=== PATIENT | female | born 1940 | race Caucasian/White ===

== ENCOUNTER → 2017-03-21 | Outpatient (CLI) | payer OTHER | END | disposition home or self-care (01) | LOC: RAH 14:32 | PROVIDERS: ATTEND Family Medicine | DX: R92.8 Other abnormal and inconclusive findings on diagnostic imaging of breast (principal); Z98.82 Breast implant status | CPT/HCPCS: 77066 ==

== ENCOUNTER → 2017-04-12 | Outpatient (CLI) | payer OTHER | END | disposition home or self-care (01) | LOC: RAH 15:40 | PROVIDERS: ATTEND Physical Medicine & Rehabilitation | DX: M47.896 Other spondylosis, lumbar region (principal) | CPT/HCPCS: 72110 ==

== ENCOUNTER → 2017-07-17 | Outpatient (CLI) | payer OTHER | END | disposition home or self-care (01) | LOC: RAH 14:45 | PROVIDERS: ATTEND Physical Medicine & Rehabilitation | DX: M51.16 Intervertebral disc disorders with radiculopathy, lumbar region (principal); M48.061 Spinal stenosis, lumbar region without neurogenic claudication | CPT/HCPCS: 72148 ==

== ENCOUNTER 2019-03-23 19:26 | Observation (INO) | payer OTHER ==
[~2019-03-23] VITALS: Ht 162.6 cm; Wt 71.8 kg
[~2019-03-23 19:26] MED LIST: CALC-933 PO; CHOL200012 PO; CLON0.5T4 PO; MAGN100T PO; METH10005 PO; THYR90TA15 PO; TURM500C9 PO; VIT500TA8 PO; ZOLP10TA6 PO; [UNRECOGNIZED DRUG - CODE] PO
[2019-03-23 20:35] LABS: BASOPHILS % (AUTO) 0.5 % (0.0-5.0); EOSINOPHILS % (AUTO) 7.5 % (0.0-8.0); HEMATOCRIT 35.6 % (36-48); LYMPHOCYTES % (AUTO) 28.1 % (21.0-51.0); MEAN CORPUSCULAR HEMOGLOBIN 29.5 pg (27.0-33.0); MEAN CORPUSCULAR HGB CONC 32.9 g/dL (32.0-36.0); MEAN CORPUSCULAR VOLUME 89.9 fL (79-99); MONOCYTES % (AUTO) 9.4 % (3.0-13.0); NEUTROPHILS % (AUTO) 54.3 % (40.0-77.0); PLATELET COUNT (AUTO) 216 K/uL (130-400); RED BLOOD CELL COUNT(AUTO) 3.96 MIL/uL (4.00-5.50); RED CELL DISTRIBUTION WIDTH 14.6 % (11.0-15.5); WHITE BLOOD COUNT (AUTO) 5.7 K/uL (4.8-10.8)
[2019-03-23 20:52] LABS: INR 1.32 (0.85-1.15); PARTIAL THROMBOPLASTIN TIME 32.2 SEC (26.3-35.5); PROTHROMBIN TIME 13.7 SEC (9.6-11.6)
[2019-03-23] MEDS: SOTALOL HCL 80 MG TABLET PO SCH (21:00)
[2019-03-23 21:57] LABS: ALBUMIN 3.4 g/dL (3.5-5.0); BILIRUBIN,DIRECT 0.4 mg/dL (0.0-0.3); BILIRUBIN,TOTAL 1.1 mg/dL (0.2-1.0); CREATININE 0.9 mg/dL (0.5-1.5); THYROID STIMULATING HORMONE 0.03 uIU/mL (0.36-3.74); TOTAL PROTEIN, SERUM 6.8 g/dL (6.0-8.3)
[2019-03-23 22:08] LABS: POTASSIUM 2.8 mmol/L (3.5-5.1)
[2019-03-23] MEDS: POTASSIUM CHLORIDE 20 MEQ ERTAB PO SCH (22:15)
[2019-03-23] MEDS ORDERED: POTASSIUM CHLORIDE 20 MEQ ERTAB PO ONE (23:36)
[2019-03-24] MEDS ORDERED: LIDOCAINE HCL-MPF 1% 2ML VIAL IJ PRN (01:00)
[2019-03-24] MEDS ORDERED: ACETAMINOPHEN 325 MG TAB PO PRN ×2 (01:00)
[2019-03-24] MEDS ORDERED: MAGNESIUM 2GM PREMIX 50ML 50 ML IV PRN (01:00)
[2019-03-24] MEDS ORDERED: NITROGLYCERIN 0.4 MG SL TAB SL PRN (01:00)
[2019-03-24] MEDS ORDERED: POTASSIUM CHLORIDE 10MEQ/100ML 100 ML IV PRN (01:00)
[2019-03-24] MEDS ORDERED: ONDANSETRON HCL 4 MG/2 ML VIAL IV PRN (01:00)
[2019-03-24 05:19] LABS: HEMATOCRIT 34.7 % (36-48); MEAN CORPUSCULAR HEMOGLOBIN 28.8 pg (27.0-33.0); MEAN CORPUSCULAR HGB CONC 31.7 g/dL (32.0-36.0); MEAN CORPUSCULAR VOLUME 90.8 fL (79-99); PLATELET COUNT (AUTO) 178 K/uL (130-400); RED BLOOD CELL COUNT(AUTO) 3.82 MIL/uL (4.00-5.50); RED CELL DISTRIBUTION WIDTH 14.7 % (11.0-15.5); WHITE BLOOD COUNT (AUTO) 4.8 K/uL (4.8-10.8)
[2019-03-24 05:42] LABS: ALBUMIN 2.9 g/dL (3.5-5.0); BILIRUBIN,TOTAL 1.3 mg/dL (0.2-1.0); CREATININE 0.8 mg/dL (0.5-1.5); MAGNESIUM 1.5 mg/dL (1.80-2.40); TOTAL PROTEIN, SERUM 6.1 g/dL (6.0-8.3)
[2019-03-24 05:43] LABS: INR 1.17 (0.85-1.15); PARTIAL THROMBOPLASTIN TIME 27.3 SEC (26.3-35.5); PROTHROMBIN TIME 12.2 SEC (9.6-11.6)
[2019-03-24] MEDS: FAMOTIDINE 20MG TAB 20 MG TAB PO SCH ×2 (09:00→21:00)
[2019-03-24] MEDS: SOTALOL HCL 80 MG TABLET PO SCH ×2 (09:00→21:00)
--- NOTE | 2019-03-24 09:01 | NUR ---
CHART REVIEWED Addendum: 03/24/19 at 0916 by LILO SWENSON RN CM CHART REVIEWED [facility] GENERATED
[2019-03-24] MEDS ORDERED: FAMOTIDINE 20MG TAB 20 MG TAB ONE (09:52)
[2019-03-24] MEDS ORDERED: MAGNESIUM 2GM PREMIX 50ML 50 ML IV ONE (09:53)
[2019-03-24] MEDS ORDERED: SOTALOL HCL 80 MG TABLET PO SCH (10:17)
--- NOTE | 2019-03-24 10:30 | NUR ---
INITIAL MET W PT AND SPOUSE IN ED PT TO BE ADMITTED FOR CARDIOVERSION. PT STATES INDP, ACTIVE, DRIVES, NO DME, LIVES WITH [facility] WHO WILL PROVIDE TRANSPORT HOME .NO DC NEEDS ANTICIPATED Addendum: 03/25/19 at 0852 by LILO SWENSON RN CM Amended: Links added.
[2019-03-24] MEDS: RIVAROXABAN 20 MG TABLET PO SCH (13:54)
[2019-03-24] MEDS ORDERED: ZOLPIDEM TARTRATE 5 MG TAB PO PRN (14:00)
[2019-03-24] MEDS ORDERED: CLONAZEPAM 0.5 MG TABLET PO PRN (14:00)
--- NOTE | 2019-03-24 15:47 | NUR ---
Had pt sign IM Letter,faxed to [phone] and placed in chart.
[2019-03-24] MEDS ORDERED: MAGNESIUM 2GM PREMIX 50ML 50 ML IV SCH (22:00)
[2019-03-24] MEDS: POTASSIUM CHLORIDE 20 MEQ ERTAB PO SCH (22:15)
[2019-03-25] MEDS ORDERED: MAGNESIUM 2GM PREMIX 50ML 50 ML IV ONE (00:12)
[2019-03-25 04:02] LABS: BASOPHILS % (AUTO) 0.6 % (0.0-5.0); EOSINOPHILS % (AUTO) 5.9 % (0.0-8.0); LYMPHOCYTES % (AUTO) 25.9 % (21.0-51.0); MEAN CORPUSCULAR HEMOGLOBIN 28.8 pg (27.0-33.0); MEAN CORPUSCULAR HGB CONC 31.9 g/dL (32.0-36.0); MONOCYTES % (AUTO) 11.4 % (3.0-13.0); PLATELET COUNT (AUTO) 242 K/uL (130-400); RED CELL DISTRIBUTION WIDTH 14.6 % (11.0-15.5); WHITE BLOOD COUNT (AUTO) 5.1 K/uL (4.8-10.8)
--- NOTE | 2019-03-25 04:10 | NUR ---
REPORT RECEIVED FROM NORBERTO HANNAH.
[2019-03-25 04:26] LABS: CREATININE 1.1 mg/dL (0.5-1.5); MAGNESIUM 1.9 mg/dL (1.80-2.40); PHOSPHORUS 3.1 mg/dL (2.5-4.9); T4 (THYROXINE) 9.9 ug/dL (4.7-13.3); THYROID STIMULATING HORMONE 0.1 uIU/mL (0.36-3.74)
--- NOTE | 2019-03-25 04:39 | NUR ---
PT ARRIVED AT THIS TIME FROM ER. PT IS STABLE. AFIB. PENDING CARDIOVERSION IN THE AM. INSTRUCTED TO GIVE SOTALOL 120MG AT 0730 BEFORE PROCEDURE.
[2019-03-25 04:43] VITALS: BP 129/86
[2019-03-25 04:49] LABS: POTASSIUM 2.7 mmol/L (3.5-5.1)
[2019-03-25] MEDS: POTASSIUM CHLORIDE 20 MEQ ERTAB PO SCH (05:13)
--- NOTE | 2019-03-25 07:30 | NUR ---
ASSESSMENT ENCOUNTERED PT ASLEEP BUT AROUSEABLE, A&OX3, CALM COOPERATIVE AND DOES NOT APPEAR TO BE IN ANY DISTRESS NOR ANY NEURO DEFICITS PRESENT. PT DENIES PAIN, SOB, NAUSEA. PT IS AMBULATORY, GAIT STEADY AND STRONG WITH STAND BY ASSIST. PT IS NPO PENDING CARDIOVERSION BY DR MARKS. CALL LIGHT WITHIN REACH, FAMILY AT BEDSIDE.
[2019-03-25] MEDS: SOTALOL HCL 80 MG TABLET PO SCH (07:51)
[2019-03-25 07:53] VITALS: BP 136/87
[2019-03-25] MEDS ORDERED: POTASSIUM CHLORIDE 20 MEQ ERTAB PO PRN (09:00)
[2019-03-25] MEDS ORDERED: POTASSIUM CHLORIDE 10% ELIXIR 20 MEQ/15 ML UDCUP PO PRN (09:00)
[2019-03-25] MEDS ORDERED: POTASSIUM CHLORIDE 20MEQ/100ML 100 ML IV PRN (09:00)
[2019-03-25] MEDS ORDERED: LIDOCAINE HCL-MPF 1% 2ML VIAL IV PRN (09:00)
[2019-03-25] MEDS ORDERED: PROPOFOL 10 MG/ML 20ML VIAL IV ONE (10:04)
[2019-03-25] MEDS ORDERED: GLYCOPYRROLATE 1 MG/5 ML SYRINGE ONE (10:05)
--- NOTE | 2019-03-25 10:54 | NUR ---
AFTER [address] LE[address] RE[address] BY [address]. AMRKS (SB HR 52), ORDERS TO AMBULATE IN HALLWAY RECEIVED.
--- NOTE | 2019-03-25 11:06 | NUR ---
PER COMPUTER OPERATIONS TECHNICIAN PT IN SR HR 68-71. ASYMPTOMATIC. REPORTED OFF TO DR. MARKS.
[2019-03-25 11:24] VITALS: BP 107/71
[2019-03-25] MEDS: RIVAROXABAN 20 MG TABLET PO SCH (11:38)
[2019-03-25] MEDS ORDERED: RIVA20TA PO (13:58)
[2019-03-25] MEDS ORDERED: POTA20TA82 PO (13:58)
[2019-03-25 15:32] VITALS: BP 97/65
--- NOTE | 2019-03-25 17:00 | NUR ---
DISCHARGE INSTRUCTIONS GIVEN, PIV REMOVED AND INTACT, DISCHARGED HOME TO FAMILY VEHICLE VIA WHEELCHAIR.
== END 2019-03-25 17:15 | disposition home or self-care (01) ==
LOC: EDH 19:26 → INTOOBSV 19:27 → EDHIP 19:27 → OBSVTOIN 19:27 → 2AH 03-25 04:35
PROVIDERS: ADMIT Internal Medicine; ATTEND Internal Medicine
DX: I48.19 Other persistent atrial fibrillation (principal); I48.20 Chronic atrial fibrillation, unspecified; D68.59 Other primary thrombophilia; I49.1 Atrial premature depolarization; E87.6 Hypokalemia; I42.9 Cardiomyopathy, unspecified; E03.9 Hypothyroidism, unspecified; I11.0 Hypertensive heart disease with heart failure; I50.22 Chronic systolic (congestive) heart failure; Z79.01 Long term (current) use of anticoagulants; Z79.899 Other long term (current) drug therapy
CPT/HCPCS: 36415 ×3; 80048 ×2; 80053; 80061; 80076; 83735 ×3; 84100; 84132 ×2; 84436; 84443 ×2; 84480; 85025 ×2; 85027; 85610 ×2; 85730 ×2; 92960; 93005 ×2; 96365; 96366; 99284; G0378 ×6; J2704; J3475 ×3; J3490 ×2

== ENCOUNTER → 2020-11-01 | Outpatient (CLI) | payer OTHER ==
[~2020-11-01] MED LIST changes: +POTA20TA82 PO; +RIVA20TA PO
== END | disposition home or self-care (01) ==
LOC: OIH 15:24
PROVIDERS: ATTEND Internal Medicine Cardiovascular Disease
DX: Z13.6 Encounter for screening for cardiovascular disorders (principal)
CPT/HCPCS: 75571

== ENCOUNTER → 2021-07-07 | Outpatient (CLI) | payer OTHER ==
[~2021-07-07] MED LIST changes: +POTA-202 PO; -POTA20TA82 PO
== END ==
LOC: RAH 12:44
PROVIDERS: ATTEND Pain Medicine Interventional Pain Medicine
DX: M47.26 Other spondylosis with radiculopathy, lumbar region (principal); M48.061 Spinal stenosis, lumbar region without neurogenic claudication; M41.86 Other forms of scoliosis, lumbar region
CPT/HCPCS: 72100

== ENCOUNTER 2023-10-09 08:11 | Observation (INO) | payer OTHER ==
[~2023-10-09] VITALS: Ht 162.6 cm; Wt 78.0 kg
[~2023-10-09 08:11] MED LIST changes: -METH10005 PO; +[UNRECOGNIZED DRUG - CODE] PO
[2023-10-09] MEDS ORDERED: AMIODARONE 900MG VIAL 360 MG in DEXTROSE 5%-WATER 200 ML IV SCH (09:00)
[2023-10-09] MEDS: AMIODARONE 900MG VIAL 150 MG in DEXTROSE 5%-WATER 100 ML IV SCH (09:00)
[2023-10-09 09:01] LABS: BASOPHILS # (AUTO) 0.07 K/uL (0.00-0.20); BASOPHILS % (AUTO) 1.2 % (0.0-5.0); EOSINOPHILS # (AUTO) 0.15 K/uL (0.00-0.70); EOSINOPHILS % (AUTO) 2.5 % (0.0-8.0); HEMATOCRIT 41.4 % (36-48); IMMATURE GRANULOCYTE ABSOLUTE 0.01 K/uL (0-1); LYMPHOCYTES # (AUTO) 2.1 K/uL (1.0-4.8); LYMPHOCYTES % (AUTO) 34.8 % (21.0-51.0); MEAN CORPUSCULAR HGB CONC 32.4 g/dL (32.0-36.0); MEAN CORPUSCULAR VOLUME 92.6 fL (79-99); MONOCYTES # (AUTO) 0.7 K/uL (0.1-1.0); MONOCYTES % (AUTO) 11.4 % (3.0-13.0); NEUTROPHILS # (AUTO) 2.9 K/uL (1.8-7.7); NEUTROPHILS % (AUTO) 49.9 % (40.0-77.0); PLATELET COUNT (AUTO) 213 K/uL (130-400); RED BLOOD CELL COUNT(AUTO) 4.47 MIL/uL (4.00-5.50); RED CELL DISTRIBUTION WIDTH 14.6 % (11.0-15.5); WHITE BLOOD COUNT (AUTO) 5.9 K/uL (4.8-10.8)
[2023-10-09 09:29] LABS: ALBUMIN 3.6 g/dL (3.5-5.0); MAGNESIUM 1.9 mg/dL (1.80-2.40); POTASSIUM 3.8 mmol/L (3.5-5.1); T4 (THYROXINE) 8.4 ug/dL (4.7-13.3); THYROID STIMULATING HORMONE 0.43 uIU/mL (0.36-3.74); TOTAL PROTEIN, SERUM 7.1 g/dL (6.0-8.3)
[2023-10-09] MEDS: AMIODARONE 150MG VIAL 150 MG in DEXTROSE 5%-WATER 100 ML IV SCH (10:01)
[2023-10-09] MEDS: AMIODARONE 900MG VIAL 540 MG in DEXTROSE 5%-WATER 300 ML IV STA (10:04)
[2023-10-09] MEDS: ONDANSETRON 4MG INJ IVP PRN ×2 (17:18→18:51)
[2023-10-09] MEDS ORDERED: PROP60TA20 PO (18:13)
[2023-10-09] MEDS ORDERED: [UNRECOGNIZED DRUG - CODE] PO (18:13)
[2023-10-09] MEDS ORDERED: APIX5TAB PO (18:13)
[2023-10-09] MEDS ORDERED: FURO20TA6 PO (18:13)
[2023-10-09 18:47] VITALS: BP 157/73; PULSE 91; RESP 18
[2023-10-09 19:52] VITALS: BP_SYST 119; BP_SYST 121; BP_DIAS 68; BP_DIAS 80; PULSE 78; RESP 18
[2023-10-09 20:00] VITALS: O2SAT 96
[2023-10-09] MEDS ORDERED: CLONAZEPAM 0.5 MG TABLET PO PRN (20:30)
[2023-10-09] MEDS ORDERED: ZOLPIDEM TARTRATE 5 MG TAB PO PRN (20:30)
[2023-10-09] MEDS: FUROSEMIDE 20 MG TABLET PO SCH (21:00)
[2023-10-10 00:22] VITALS: BP 116/75; PULSE 75; RESP 18
[2023-10-10 04:35] VITALS: BP 102/61; PULSE 78; RESP 18
[2023-10-10 08:00] VITALS: BP 115/67; PULSE 85; RESP 16; O2SAT 97
[2023-10-10] MEDS: THYROID PORK 120 MG PO SCH (09:00)
[2023-10-10] MEDS ORDERED: PROPOFOL 10 MG/ML 20ML VIAL IV ONE (09:33)
[2023-10-10] MEDS ORDERED: AMIO200T68 PO (10:09)
[2023-10-10 12:15] VITALS: BP 103/47; PULSE 70; RESP 16
[2023-10-10] MEDS: APIXABAN 5 MG TABLET PO SCH (12:45)
[2023-10-10] MEDS: GLUCOSAMINE-CHONDROITIN PO SCH (12:46)
[2023-10-10] MEDS: PROPRANOLOL HCL 20 MG TAB PO SCH (12:46)
[2023-10-10] MEDS: AMIODARONE 200 MG TABLET PO ONE (12:46)
== END 2023-10-10 13:05 | disposition home or self-care (01) ==
LOC: EDH 08:11 → EDHIP 08:12 → 2AH 17:47
PROVIDERS: ADMIT Internal Medicine Cardiovascular Disease; ATTEND Internal Medicine Cardiovascular Disease
DX: I48.19 Other persistent atrial fibrillation (principal); Z79.899 Other long term (current) drug therapy
CPT/HCPCS: 96376; 96365; 96366 ×2; 96375; 84443; 84436; 83735; 80053; 85025; 36415; 93005 ×2; 92960; G0378 ×23; G0379; J7060 ×3; J2405 ×2; J0282 ×3; J2704; J3490